=== PATIENT | female | born 1945 | race Caucasian/White ===

== ENCOUNTER 2019-10-17 10:53 | Emergency (ER) | payer MEDICAID, MEDICARE ==
[~2019-10-17 10:53] MED LIST: Sodium Chloride 0.9% 100 ML BAG ONE
[2019-10-17 11:22] LABS: #Basophils 0.2 thou/uL (0.0-0.2); #Lymphocytes 1.3 thou/uL (1.20-3.40); #Monocytes 0.8 thou/uL (0.11-0.59); #Neutrophils 9.6 thou/uL (1.40-6.50); %Basophils 1.3 % (0.0-1.0); %Eosinophils 0.3 % (0.0-10.0); %Lymphocytes 11.2 % (21.0-51.0); %Monocytes 6.9 % (0.0-10.0); %Neutrophils 80.3 % (42.0-75.0); Hemoglobin 13.4 g/dL (12.0-16.0); Mean Corpuscular HGB CONC 31.6 g/dL (32.0-36.0); Mean Corpuscular Hemoglobin 27.2 pg (27.0-31.0); Mean Corpuscular Volume 86.1 fL (78.0-98.0); Mean Platelet Volume 9.8 fL (7.4-10.4); Platelet Count 291 thou/uL (130-400); RBC Distribution Width 14.2 % (11.5-14.5); Red Blood Cell (RBC) Count 4.92 mill/uL (4.20-5.40); White Blood Cell (WBC) Count 11.9 thou/uL (4.8-10.8)
[2019-10-17] MEDS ORDERED: Diltiazem 125 MG/25 ML ONE (11:23)
[2019-10-17 11:35] LABS: ALT (SGPT) 38 U/L (8-55); AST (SGOT) 30 U/L (5-34); Albumin 3.9 g/dL (3.4-4.8); Alkaline Phosphatase 87 U/L (40-110); Anion Gap 21 mmol/L (10-20); BUN (Urea Nitrogen) 60 mg/dL (9.8-20.1); Bilirubin, Total 0.8 mg/dL (0.2-1.2); Calc. Creatinine Clearance 0 mL/min (70-130); Calcium 8.9 mg/dL (7.8-10.44); Carbon Dioxide 17 mmol/L (23-31); Chloride 102 mmol/L (98-107); Estimated GFR-MDRD 38; Globulin 3.1 g/dL (2.4-3.5); Glucose 220 mg/dL (83-110); Magnesium 2.3 mg/dL (1.6-2.6); Potassium 4.3 mmol/L (3.5-5.1); Sodium 136 mmol/L (136-145)
--- NOTE | 2019-10-17 11:55 | RAD ---
PORTABLE CHEST: Date; 10/17/2019 PROVIDED CLINICAL HISTORY: Chest pain. FINDINGS: Comparison with 06/19/2013. Cardiac silhouette remains enlarged. Chronic appearing interstitial opacities are similar. No focal c onsolidation, pleural fluid, or pneumothorax apparent. IMPRESSION: Cardiomegaly without evidence for an acute cardiopulmonary process. POS: [facility]
[2019-10-17] MEDS ORDERED: Furosemide 20 MG/2 ML VIAL ONE (12:14)
[2019-10-17] MEDS ORDERED: Enoxaparin Sodium 30 MG/0.3 ML SYRINGE ONE (12:14)
[2019-10-17] MEDS ORDERED: Aspirin Chewable 81 MG TAB ONE (12:14)
[2019-10-17] MEDS ORDERED: Ondansetron PF 4 MG/2 ML Vial ONE (12:14)
== END 2019-10-17 13:36 | disposition short-term general hospital (02) ==
LOC: MADERS 10:53
DX: I48.91 Unspecified atrial fibrillation (principal); I21.4 Non-ST elevation (NSTEMI) myocardial infarction; I11.0 Hypertensive heart disease with heart failure; I50.9 Heart failure, unspecified; Z79.899 Other long term (current) drug therapy
CPT/HCPCS: 71045; 80053; 83735; 83880; 84443; 84484; 85025; 93005; 96365; 96366; 96372; 96375; 96376; J1650; J1940; J2405; J3490

== ENCOUNTER 2019-11-07 13:52 | Outpatient (CLI) | payer MEDICARE ==
[2019-11-07 16:26] LABS: Anion Gap 17 mmol/L (10-20); BUN (Urea Nitrogen) 30 mg/dL (9.8-20.1); Calc. Creatinine Clearance 0 mL/min (70-130); Carbon Dioxide 25 mmol/L (23-31); Chloride 102 mmol/L (98-107); Estimated GFR-MDRD 46; Potassium 4.8 mmol/L (3.5-5.1); Sodium 139 mmol/L (136-145)
[2019-11-07 16:27] LABS: Calcium 9.2 mg/dL (7.8-10.44); Glucose 92 mg/dL (83-110)
== END 2019-11-07 13:53 | disposition home or self-care (01) ==
LOC: MADLAB 13:52
PROVIDERS: ATTEND Internal Medicine Cardiovascular Disease
DX: I10 Essential (primary) hypertension (principal)
CPT/HCPCS: 80048

== ENCOUNTER 2022-01-06 11:34 | Outpatient (CLI) | payer MEDICARE ==
[2022-01-06 12:02] LABS: ALT (SGPT) 12 U/L (8-55); AST (SGOT) 16 U/L (5-34); Albumin 3.9 g/dL (3.4-4.8); Alkaline Phosphatase 79 U/L (40-110); Anion Gap 13 mmol/L (10-20); BUN (Urea Nitrogen) 23 mg/dL (9.8-20.1); Bilirubin, Total 0.3 mg/dL (0.2-1.2); Calc. Creatinine Clearance 0 mL/min (70-130); Calcium 9.5 mg/dL (7.8-10.44); Carbon Dioxide 27 mmol/L (23-31); Cardiac Risk 3.6 (Less than 4.5); Chloride 105 mmol/L (98-107); Cholesterol 227 mg/dl (< 200 Desired); Estimated GFR 86; Globulin 3.4 g/dL (2.4-3.5); Glucose 106 mg/dL (83-110); HDL Cholesterol 63 mg/dL (>60 Neg Risk); LDL Cholesterol, Calculated 149 mg/dL; Potassium 4.9 mmol/L (3.5-5.1); Protein, Total 7.3 g/dL (5.8-8.1); Sodium 140 mmol/L (136-145); Triglycerides 75 mg/dL (Less than 150)
== END 2022-01-06 11:35 | disposition home or self-care (01) ==
LOC: MADLABBHPM 11:34 → MADLAB 11:35
PROVIDERS: ATTEND Family Medicine
DX: E78.2 Mixed hyperlipidemia (principal); I11.0 Hypertensive heart disease with heart failure; I50.9 Heart failure, unspecified
CPT/HCPCS: 80053; 80061

== ENCOUNTER 2022-04-08 08:19 | Outpatient (CLI) | payer OTHER, MEDICARE | END 2022-04-08 08:20 | disposition home or self-care (01) | LOC: MADRAD 08:19 | PROVIDERS: ATTEND Family Medicine | DX: M54.2 Cervicalgia (principal); M47.812 Spondylosis without myelopathy or radiculopathy, cervical region; V89.2XXA Person injured in unspecified motor-vehicle accident, traffic, initial encounter; V49.9XXA Car occupant (driver) (passenger) injured in unspecified traffic accident, initial encounter | CPT/HCPCS: 72050 ==

== ENCOUNTER 2022-08-10 11:31 | Emergency (ER) | payer MEDICARE ==
[2022-08-10] MEDS ORDERED: Sodium Chloride 0.9% 500 ML ONE (11:55)
[2022-08-10] MEDS ORDERED: Ondansetron PF 4 MG/2 ML Vial ONE (12:17)
[2022-08-10 12:20] LABS: #Basophils 0.1 thou/uL (0.0-0.2); #Eosinphils 0.1 thou/uL (0.0-0.7); #Monocytes 0.6 thou/uL (0.11-0.59); #Neutrophils 4.5 thou/uL (1.40-6.50); %Basophils 1.6 % (0.0-1.0); %Eosinophils 2.2 % (0.0-10.0); %Lymphocytes 15.4 % (21.0-51.0); %Monocytes 9.3 % (0.0-10.0); %Neutrophils 71.6 % (42.0-75.0); Hemoglobin 14.1 g/dL (12.0-16.0); Mean Corpuscular HGB CONC 31.6 g/dL (32.0-36.0); Mean Corpuscular Hemoglobin 28.2 pg (27.0-31.0); Mean Corpuscular Volume 89.4 fl (78.0-98.0); Mean Platelet Volume 9.6 fL (7.4-10.4); Platelet Count 230 10x3/uL (130-400); RBC Distribution Width 12.9 % (11.5-14.5); Red Blood Cell (RBC) Count 4.98 mill/uL (4.20-5.40); White Blood Cell (WBC) Count 6.3 10x3/uL (4.8-10.8)
[2022-08-10 12:30] LABS: Base Excess-Venous -2.9 mmol/L (-2.0 to 3.0); Bicarbonate (HCO3v) 22.6 mmol/L (22.0-28.0); CO2 Tension (PvCO2) 40.9 mmHg (42.0-51.0); Calcium, Ionized 1.09 mmol/L (1.15-1.33); Chloride 105 mmol/L (98-107); Hemoglobin - Calc 15.7 g/dL (12.0-16.0); Potassium 4.1 mmol/L (3.5-5.1); Sodium 140 mmol/L (138-145); T. Carbon Dioxide 23.8 mmol/L (22.0-28.0); vO2 Saturation-calc 98.7 % (60.0-85.0)
[2022-08-10 12:36] LABS: ALT (SGPT) 20 U/L (8-55); AST (SGOT) 23 U/L (5-34); Albumin 3.9 g/dL (3.4-4.8); Alkaline Phosphatase 79 U/L (40-110); Anion Gap 19 mmol/L (10-20); BUN (Urea Nitrogen) 35 mg/dL (9.8-20.1); Bilirubin, Total 1.1 mg/dL (0.2-1.2); Calc. Creatinine Clearance 0 mL/min (70-130); Calcium 9.4 mg/dL (7.8-10.44); Carbon Dioxide 20 mmol/L (23-31); Chloride 104 mmol/L (98-107); Estimated GFR 78; Globulin 3.1 g/dL (2.4-3.5); Glucose 112 mg/dL (83-110); Lipase 19 U/L (8-78); Potassium 3.9 mmol/L (3.5-5.1); Sodium 139 mmol/L (136-145)
[2022-08-10 12:37] LABS: Acetaminophen Less than 10.0 mcg/mL (10.0-30.0); Alcohol Less than 10 mg/dL (Less than 10); Magnesium 1.9 mg/dL (1.6-2.6); Salicylate Less than 8.0 mg/dL (15.0-30.0)
[2022-08-10] MEDS ORDERED: Aspirin 325 MG TAB ONE (12:47)
[2022-08-10] MEDS ORDERED: Furosemide 40 MG/4 ML VIAL ONE (12:47)
[2022-08-10 12:53] LABS: CKMB 6.3 ng/mL (0-6.6)
[2022-08-10 13:22] LABS: SARS-CoV-2 NAA Rapid Test Not Detected (NotDetected)
[2022-08-10] MEDS ORDERED: Metoprolol Tartrate 5 MG/5 ML VIAL ONE (13:55)
[2022-08-10 14:13] LABS: Cocaine Metabolite Screen Not Detected (NotDetected); Methamphetamine Not Detected (NotDetected); Opiate Screen Not Detected (NotDetected); Phencyclidine (PCP) Not Detected (NotDetected); THC/Cannabinoid Screen Not Detected (NotDetected)
[2022-08-10 14:14] LABS: Amphetamine Not Detected (NotDetected); Barbiturates Screen Not Detected (NotDetected); Benzodiazepine Screen Not Detected (NotDetected); Methadone Not Detected (NotDetected); Oxycodone Screen Not Detected (NotDetected); Tricyclic Screen Not Detected (NotDetected)
[2022-08-10 14:20] LABS: Bilirubin Negative (Negative); Blood, Urine Trace (Negative); Clarity Clear (Clear); Glucose, Urine (Dipstick) Negative (Negative); Ketone, Urine 15 mg/dL (Negative); Leukocyte Negative (Negative); Nitrite Negative (Negative); Protein, Urine (Dipstick) Negative (Neg-Trace); Urobilinogen 0.2 mg/dL (Less than 2); pH, Urine 5.5 (5.0-9.0)
[2022-08-10 14:21] LABS: Bacteria/HPF Rare-Few HPF (None Seen); RBC/HPF 0-3 HPF (0-3); Squamous Epithelial 0-3 HPF (0-3); WBC/HPF 0-3 HPF (0-3)
== END 2022-08-10 14:09 | disposition short-term general hospital (02) ==
LOC: MADERS 11:31
DX: A41.9 Sepsis, unspecified organism (principal); I13.0 Hypertensive heart and chronic kidney disease with heart failure and stage 1 through stage 4 chronic kidney disease, or unspecified chronic kidney disease; N18.2 Chronic kidney disease, stage 2 (mild); I21.4 Non-ST elevation (NSTEMI) myocardial infarction; J18.9 Pneumonia, unspecified organism; J44.9 Chronic obstructive pulmonary disease, unspecified; R77.8 Other specified abnormalities of plasma proteins; Z79.899 Other long term (current) drug therapy; Z79.82 Long term (current) use of aspirin; Z20.822 Contact with and (suspected) exposure to COVID-19
CPT/HCPCS: 36415; 71045; 80053; 80306; 80307; 81003; 81015; 82330; 82553; 82803; 83605; 83690; 83735; 83880; 84484; 85025; 87040; 87086; 93005; 96365; 96372; 96374; 96375; J1650; J1940; J1956; J2405; J7030

== ENCOUNTER 2023-04-15 22:37 | Emergency (ER) | payer MEDICARE ==
[2023-04-15] MEDS ORDERED: Sodium Chloride 0.9% 1,000 ML ONE (23:35)
[2023-04-15] MEDS ORDERED: Promethazine HCl 25 MG/ML VIAL ONE (23:35)
[2023-04-16 00:01] LABS: #Basophils 0.2 thou/uL (0.0-0.2); #Eosinphils 0.1 thou/uL (0.0-0.7); #Lymphocytes 0.9 thou/uL (1.20-3.40); #Monocytes 0.8 thou/uL (0.11-0.59); #Neutrophils 8.1 thou/uL (1.40-6.50); %Basophils 1.5 % (0.0-1.0); %Eosinophils 0.8 % (0.0-10.0); %Monocytes 7.7 % (0.0-10.0); Hematocrit 41.7 % (36.0-47.0); Hemoglobin 12.8 g/dL (12.0-16.0); Mean Corpuscular HGB CONC 30.7 g/dL (32.0-36.0); Mean Corpuscular Hemoglobin 30.6 pg (27.0-31.0); Mean Corpuscular Volume 99.6 fl (78.0-98.0); Mean Platelet Volume 9.8 fL (7.4-10.4); Platelet Count 304 10x3/uL (130-400); Red Blood Cell (RBC) Count 4.19 mill/uL (4.20-5.40)
[2023-04-16 00:20] LABS: Troponin I 0.135 ng/mL (< 0.028)
[2023-04-16 00:25] LABS: ALT (SGPT) 212 U/L (8-55); AST (SGOT) 224 U/L (5-34); Albumin 3.6 g/dL (3.4-4.8); Alkaline Phosphatase 119 U/L (40-110); Anion Gap 20 mmol/L (10-20); BUN (Urea Nitrogen) 32 mg/dL (9.8-20.1); Bilirubin, Total 0.5 mg/dL (0.2-1.2); Calc. Creatinine Clearance 0 mL/min (70-130); Calcium 8.9 mg/dL (7.8-10.44); Carbon Dioxide 23 mmol/L (23-31); Chloride 99 mmol/L (98-107); Estimated GFR 62; Globulin 2.9 g/dL (2.4-3.5); Glucose 133 mg/dL (83-110); Magnesium 2.2 mg/dL (1.6-2.6); Potassium 4.1 mmol/L (3.5-5.1); Protein, Total 6.5 g/dL (5.8-8.1); Sodium 138 mmol/L (136-145)
[2023-04-16] MEDS ORDERED: Furosemide 40 MG/4 ML VIAL ONE (01:16)
[2023-04-16] MEDS ORDERED: Ondansetron PF 4 MG/2 ML Vial ONE (01:16)
[2023-04-16] MEDS ORDERED: Aspirin 325 MG TAB ONE (02:04)
[2023-04-16 02:15] LABS: Troponin I 0.134 ng/mL (< 0.028)
== END 2023-04-16 06:06 | disposition short-term general hospital (02) ==
LOC: MADERS 22:37
DX: I13.0 Hypertensive heart and chronic kidney disease with heart failure and stage 1 through stage 4 chronic kidney disease, or unspecified chronic kidney disease (principal); I50.9 Heart failure, unspecified; N18.2 Chronic kidney disease, stage 2 (mild); R11.2 Nausea with vomiting, unspecified; R79.89 Other specified abnormal findings of blood chemistry
CPT/HCPCS: 71045; 80053; 83735; 83880; 84484; 85025; 93005; 94760; 96361; 96365; 96375; J1940; J2405; J2550; J7050

== ENCOUNTER 2023-05-16 13:08 | Emergency (ER) | payer MEDICARE ==
[2023-05-16 13:39] LABS: #Basophils 0.1 thou/uL (0.0-0.2); #Eosinphils 0.1 thou/uL (0.0-0.7); #Lymphocytes 1.2 thou/uL (1.20-3.40); #Monocytes 0.8 thou/uL (0.11-0.59); #Neutrophils 6.3 thou/uL (1.40-6.50); %Basophils 1.2 % (0.0-1.0); %Eosinophils 0.8 % (0.0-10.0); %Lymphocytes 14.5 % (21.0-51.0); %Monocytes 9.3 % (0.0-10.0); %Neutrophils 74.3 % (42.0-75.0); Hematocrit 47.2 % (36.0-47.0); Hemoglobin 14.3 g/dL (12.0-16.0); Mean Corpuscular HGB CONC 30.3 g/dL (32.0-36.0); Mean Corpuscular Hemoglobin 25.2 pg (27.0-31.0); Mean Corpuscular Volume 83.1 fl (78.0-98.0); Mean Platelet Volume 9.1 fL (7.4-10.4); Platelet Count 280 10x3/uL (130-400); RBC Distribution Width 15.3 % (11.5-14.5); Red Blood Cell (RBC) Count 5.68 mill/uL (4.20-5.40); White Blood Cell (WBC) Count 8.5 10x3/uL (4.8-10.8)
[2023-05-16 13:53] LABS: Troponin I 0.093 ng/mL (< 0.028)
[2023-05-16 13:54] LABS: ALT (SGPT) 45 U/L (8-55); AST (SGOT) 49 U/L (5-34); Albumin 3.9 g/dL (3.4-4.8); Alkaline Phosphatase 99 U/L (40-110); Anion Gap 21 mmol/L (10-20); BUN (Urea Nitrogen) 31 mg/dL (9.8-20.1); Bilirubin, Total 1.8 mg/dL (0.2-1.2); Calc. Creatinine Clearance 0 mL/min (70-130); Calcium 9.4 mg/dL (7.8-10.44); Carbon Dioxide 19 mmol/L (23-31); Chloride 102 mmol/L (98-107); Estimated GFR 59; Globulin 3.5 g/dL (2.4-3.5); Glucose 138 mg/dL (83-110); Lipase 8 U/L (8-78); Magnesium 2.1 mg/dL (1.6-2.6); Potassium 4.1 mmol/L (3.5-5.1); Protein, Total 7.4 g/dL (5.8-8.1); Sodium 138 mmol/L (136-145)
[2023-05-16] MEDS ORDERED: LevoFLOXacin 750 mg/D5W 150 ml Premix Bag ONE (14:03)
[2023-05-16] MEDS ORDERED: Ondansetron ODT 4 MG TAB ONE (14:03)
[2023-05-16] MEDS ORDERED: Vancomycin 1 GM VIAL ONE (14:03)
[2023-05-16] MEDS ORDERED: Aspirin 325 MG TAB ONE (14:04)
[2023-05-16] MEDS ORDERED: Sodium Chloride 0.9% 250 ML 250 ML ONE (14:04)
[2023-05-16] MEDS ORDERED: Furosemide 20 MG (2 mL) VIAL ONE (14:28)
[2023-05-16 15:19] LABS: Bilirubin Negative (Negative); Blood, Urine Small (Negative); Glucose, Urine (Dipstick) Negative (Negative); Ketone, Urine Negative (Negative); Leukocyte Moderate (Negative); Nitrite Negative (Negative); Protein, Urine (Dipstick) 100 mg/dL (Neg-Trace); Urobilinogen 0.2 mg/dL (Less than 2); pH, Urine 5.5 (5.0-9.0)
[2023-05-16 15:27] LABS: Clarity Hazy (Clear)
[2023-05-16 15:39] LABS: Bacteria/HPF 1+ HPF (None Seen); CAUTI Indications for Culture Alt mental st,lethar; RBC/HPF 0-3 HPF (0-3)
[2023-05-16 15:40] LABS: Urine Culture Reflex Yes Yes
[2023-05-16 15:52] LABS: SARS-CoV-2 NAA Rapid Test Not Detected (NotDetected)
[2023-05-16 17:40] LABS: Lactic Acid 2.8 mmol/L (0.5-2.2)
[2023-05-16 18:28] LABS: Troponin I 0.099 ng/mL (< 0.028)
== END 2023-05-16 18:53 | disposition short-term general hospital (02) ==
LOC: MADERS 13:08
DX: I11.0 Hypertensive heart disease with heart failure (principal); I50.9 Heart failure, unspecified; J18.9 Pneumonia, unspecified organism; A41.9 Sepsis, unspecified organism; N39.0 Urinary tract infection, site not specified; Z79.01 Long term (current) use of anticoagulants
CPT/HCPCS: 71045; 80053; 81001; 83605; 83690; 83735; 83880; 84484 ×2; 85025; 87040; 87086; 87804 ×2; 93005; U0002; 36415; 96365; 96375; J1940; J1956; J3370; J7050; Q0162